=== PATIENT | female | born 1945 | race Caucasian/White ===

== ENCOUNTER 2018-08-31 01:29 | Outpatient (CLI) | payer MEDICARE, OTHER, SELFPAY ==
--- NOTE | 2018-08-31 12:40 | DI.US_ITS ---
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 The velocity measurements obtained are within the normal range. The vertebral arteries show antegrade flow. IMPRESSION: Negative carotid ultrasound. No significant plaque or stenosis.
== END 2018-08-31 01:49 ==
PROVIDERS: PCP Emergency Medicine; Visit Provider Emergency Medicine
DX: R47.1 Dysarthria and anarthria (principal)
CPT/HCPCS: 93880

== ENCOUNTER 2018-08-31 01:41 | Outpatient (CLI) | payer MEDICARE, OTHER, SELFPAY ==
--- NOTE | 2018-08-31 11:24 | DI.MRI_ITS ---
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 No intracranial hemorrhage, mass or infarct is seen. The ventricles are normal in size. The vascular flow voids appear intact. There are a few scattered tiny high signal lesions in the white matter, likely representing small vessel disease. No areas of restricted diffusion are seen. The sinuses, orbits and pithiatry, as well as mastoid air cells, are unremarkable. IMPRESSION: Negative MRI of the brain.
== END 2018-08-31 02:01 ==
PROVIDERS: PCP Emergency Medicine; Visit Provider Emergency Medicine
DX: R47.1 Dysarthria and anarthria (principal)
CPT/HCPCS: 70551; 93880

== ENCOUNTER 2018-09-08 15:34 | Outpatient (CLI) | payer MEDICARE, OTHER, SELFPAY ==
--- NOTE | 2018-09-28 08:46 | ZIOP_ITS ---
ZIO PATCH CARDIAC MONITORING DEVICE DATE OF DICTATION SEPTEMBER 28, 2018 INDICATION Paroxysmal atrial fibrillation. ANALYISIS TIME - 13 Days and 9 hours. FINDINGS Predominant underlying rhythm is sinus rhythm. Average heart rate is 62 beats per minute. 125 episodes of SVT. The longest lasting 15.7 seconds with an average heart rate of 149 beats per minute. Otherwise rare isolated atrial ectopy. No Atrial fibrillation. Rare isolated ventricular ectopy. No nonsustained VT. No significant pauses or eliane arrhythmia. 10 patient triggered events correspond predominantly to sinus rhythm and occasionally to sinus rhythm with atrial ectopy. 6 diary entries with symptoms such as breathing hard corresponding to sinus rhythm, lightheadedness corresponding to sinus rhythm, and fluttering, racing sensation occasionally with some isolated ventricular ectopy. Vaughn Jeffries M.D. KARTHIKEYAN/yulia T - 09/28/2018
== END 2018-09-08 15:54 ==
PROVIDERS: PCP Emergency Medicine; Visit Provider Emergency Medicine
DX: I48.0 Paroxysmal atrial fibrillation (principal); I47.1 Supraventricular tachycardia
CPT/HCPCS: 93225

== ENCOUNTER 2018-09-28 08:26 | Outpatient (CLI) | payer MEDICARE, OTHER, SELFPAY | END 2018-09-28 08:46 | PROVIDERS: PCP Emergency Medicine; Referring Provider Emergency Medicine; Visit Provider Internal Medicine Cardiovascular Disease | DX: I48.0 Paroxysmal atrial fibrillation (principal); I47.1 Supraventricular tachycardia | CPT/HCPCS: 0298T ==

== ENCOUNTER 2018-11-05 00:42 | Outpatient (CLI) | payer MEDICARE, OTHER, SELFPAY ==
--- NOTE | 2018-11-05 09:21 | DI.MAMMO_ITS ---
SYMPTOM/DIAGNOSIS: SCREENING, Z12.31 MAMMOGRAMS: Mammograms were interpreted according to the usual protocol including computer analysis with CAD system, tomosynthesis and C view imaging. The breast tissue is heterogeneously radiodense which lowers the sensitivity of the study. There is no dominant mass. There are no suspicious calcifications and there has been no significant interval change when compared with prior images. SUMMARY: No evidence of malignancy. Category 1. Yearly screening mammography is recommended. Breast density, Category C. SA ASSESSMENT OF FINDINGS: Negative. Category 1. Patient will receive a letter notifying them of these results. Bi-RADS category C. The breasts are heterogeneously dense, which may obscure small masses.
== END 2018-11-05 01:02 ==
PROVIDERS: PCP Emergency Medicine; Visit Provider Obstetrics & Gynecology Gynecology
DX: Z12.31 Encounter for screening mammogram for malignant neoplasm of breast (principal)
CPT/HCPCS: 77063; 77067

== ENCOUNTER 2018-11-05 10:55 | Outpatient (REF) | payer MEDICARE, OTHER, SELFPAY ==
--- NOTE | 2018-11-05 10:00 | PAPFT_PTH ---
PATIENT: Lucero Aguilar LOC: SPENSER U#:[id number] AGE/SX: 73/F ROOM: RE11/05/[address]: Tomeka Fierro : 1945 BED: DIS: 11/05/2018 SPEC #: [id number] RECD: 11/05/18 12:45 STATUS: AYAANJackeline REAyo #: [id number] HAKEEM: 11/05/18 10:[address]: Tomeka Fierro [facility] Cytology RECD BY: Lakshmi Klein ENTERED: 11/05/18 12:46 SP TYPE: PAPFT OTHR DR: Indio Odonnell, Tissues: 1 - CX/ENDOCX FOR PAP SMEARS Procedures: PAP THIN PREP/UVM Screening HPV DNA PROBE Comments: [id number]
== END 2018-11-05 11:15 ==
LOC: LBN 10:55
PROVIDERS: PCP Emergency Medicine; Visit Provider Obstetrics & Gynecology Gynecology
DX: Z12.4 Encounter for screening for malignant neoplasm of cervix (principal); Z11.51 Encounter for screening for human papillomavirus (HPV)
CPT/HCPCS: 88142; 87624

== ENCOUNTER 2020-02-01 00:29 | Outpatient (CLI) | payer MEDICARE, OTHER, SELFPAY ==
--- NOTE | 2020-02-01 12:00 | DI.MAMMO_ITS ---
EXAM: MAMMO SCREENING CLINICAL HISTORY: screening, Z12.39 TECHNIQUE: Mammograms were interpreted according to the usual protocol including computer analysis w [employer] CAD system, tomosynthesis and C-view imaging. COMPARISON: 2010 through 2018 FINDINGS: The breasts are composed of heterogeneously dense fibroglandular densities, Breast Density category C . No suspicious masses or suspicious microcalcifications are seen. No skin thickening or abnormal axillary lymph nodes are seen. There has been no significant change from prior exams. IMPRESSION: BI-RADS Category 1: Negative mammogram. Yearly screening mammography is recommended. Breast density category C, heterogeneously dense tissue which decreases the sensitivity of the mammog francesca. The mammogram demonstrates the patient's breast tissue is dense. Dense breast tissue is very common a nd is not abnormal but dense breast tissue can make it harder to find cancer on a mammogram. Also, de nse breast tissue may increase breast cancer risk. This information about the result of the mammogram report was provided to the patient to raise their awareness. Use this report when you speak with the patient about their risks for breast cancer, which includes their family history. At that time, you may recommend additional screening tests (Ultrasound or MRI) as they might be useful based on their r isk. A negative radiographic report should not delay biopsy if a dominant or clinically suspicious mass is present. Up to ten percent of cancers are not identified on mammography. A negative report may reinforce clinical impression. Adenosis and dense breasts may obscure an underlying neoplasm. False positive reports average 6 to 10%.
== END 2020-02-01 00:49 ==
PROVIDERS: PCP Emergency Medicine; Visit Provider Obstetrics & Gynecology Gynecology
DX: Z12.31 Encounter for screening mammogram for malignant neoplasm of breast (principal)
CPT/HCPCS: 77063; 77067

== ENCOUNTER 2021-01-24 18:40 | Outpatient (REF) | payer MEDICARE, OTHER, SELFPAY ==
[2021-01-24 18:43] LABS: Calculated LDL 110 mg/dL (<100); Cholesterol 206 mg/dL (<200); HDL Cholesterol 67 mg/dL (40-60); Triglyceride 147 mg/dL (<150)
== END 2021-01-24 18:41 | disposition home or self-care (01) ==
LOC: LBN 18:40
PROVIDERS: PCP Emergency Medicine; Visit Provider Emergency Medicine
DX: E78.5 Hyperlipidemia, unspecified (principal)
CPT/HCPCS: 80061

== ENCOUNTER 2021-02-05 01:55 | Outpatient (CLI) | payer MEDICARE, OTHER, SELFPAY ==
--- NOTE | 2021-02-05 07:15 | DI.MAMMO_ITS ---
Exam(s) MAMMO SCREENING EXAM: MAMMO SCREENING CLINICAL HISTORY: screening,z12.39. TECHNIQUE: Bilateral full field digital CC and MLO mammographic images were obtained with 3D tomosyn thesis and utilizing computer aided detection (CAD). COMPARISON: Prior mammograms dating back to 2011, the most recent being January 2020. FINDINGS: There has been no significant change in the appearance and distribution of the fibroglandular tissue is again noted to be dense, this decreasing the sensitivity of the mammogram for finding in underlyin g lesions. There are no new obvious spiculated masses nor malignant appearing microcalcification groups. There is no significant architectural distortion nor skin thickening-retraction. IMPRESSION: Dense bilateral fibroglandular tissue. No obvious radiographic evidence of malignancy nor significan t change compared to prior studies listed above. BI-RADS Category 2 - Benign Findings Breast Density - Category C - Heterogeneously dense Breast density Category C or D implies that the patient has dense breast tissue. Dense breast tissue can make it harder to find cancer on a mammogram. Dense breast tissue is also associated with an incr eased risk of breast cancer. This information about the result of the mammogram report was provided to the patient to raise their awareness. Use this report when you speak with the patient about their risks for breast cancer, which includes their family history. At that time, you may recommend additional screening tests (Ultrasoun d or MRI) as these tests may add significant information. A negative radiographic report should not delay biopsy if a dominant or clinically suspicious mass is present. Up to ten percent of cancers are not identified on mammography. A negative report may reinforce clinical impression. Adenosis and dense breasts may obscure an underlying neoplasm. False positive reports average 6 to 10%. Patient will receive a letter notifying them of these results.
== END 2021-02-05 02:15 ==
PROVIDERS: PCP Emergency Medicine; Visit Provider Nurse Practitioner Family
DX: Z12.31 Encounter for screening mammogram for malignant neoplasm of breast (principal)
CPT/HCPCS: 77063; 77067

== ENCOUNTER 2021-07-24 13:58 | Outpatient (RCR) | payer MEDICARE, OTHER, SELFPAY ==
--- NOTE | 2021-07-24 14:30 | HOLTER_ITS ---
APPROVED REPORT Conclusion This is a 48-hour Holter monitor ordered for indication of palpitations. The patient was in normal sinus rhythm for the majority of the recording with an average heart rate o f 64 bpm. There were 23 brief episodes of supraventricular tachycardia the longest lasting 7 beats. There were rare PACs. There were no episodes of ventricular tachycardia and rare PVCs. There were no episodes of atrial fibrillation, no pauses greater than 3 seconds and no evidence of hi gh degree heart block. There were 2 patient triggered events associated with irregular pulse x20 seconds. Both of these w ere associated with sinus rhythm and sinus tachycardia.
== END 2021-08-17 23:59 | disposition home or self-care (01) ==
LOC: RT 13:58
PROVIDERS: PCP Emergency Medicine; Visit Provider Emergency Medicine
DX: R00.2 Palpitations (principal); I47.1 Supraventricular tachycardia
CPT/HCPCS: 93227; 93225; 93226

== ENCOUNTER 2021-07-24 13:59 | Outpatient (CLI) | payer MEDICARE, OTHER, SELFPAY ==
[2021-07-24 16:12] LABS: TSH 2.28 uIU/mL (0.36-3.74); Vitamin B12 990 pg/mL (193-986)
[2021-07-26 17:36] LABS: Methylmalonic Acid 0.15 nmol/mL (<=0.40)
== END 2021-07-24 14:00 | disposition home or self-care (01) ==
LOC: LBO 07-25 14:03
PROVIDERS: PCP Emergency Medicine; Visit Provider Emergency Medicine
DX: G62.9 Polyneuropathy, unspecified (principal); E03.9 Hypothyroidism, unspecified
CPT/HCPCS: 36415; 80186; 82607; 84443; 93225

== ENCOUNTER → 2022-03-13 01:51 | Outpatient (CLI) | payer MEDICARE, OTHER, SELFPAY ==
--- NOTE | 2022-03-13 12:38 | DI.MAMMO_ITS ---
Exam(s) MAMMO SCREENING EXAM: MAMMO SCREENING CLINICAL HISTORY: screening, Z12.39 TECHNIQUE: Bilateral full field digital CC and MLO mammographic images were obtained with 3D tomosyn thesis and utilizing computer aided detection (CAD). COMPARISON: Available for comparison. FINDINGS: Masses/Architectural Distortion: None seen. Microcalcifications: No suspicious pleomorphic-type are seen. Skin Thickening/Nipple Retraction: None. IMPRESSION: 1. No significant interval change with no specific features of malignancy noted. 2. Unless there is more urgent need, screening mammography is recommended, as per [employer] guidelines. BI-RADS Category 1 - Negative Breast Density - Category C - Heterogeneously dense Breast density category C or D implies that the patient has dense breast tissue. Dense breast tissue is very common and is not abnormal but dense breast tissue can make it harder to find cancer on a ma mmogram. Also, dense breast tissue may increase their breast cancer risk. This information about the result of the mammogram report was provided to the patient to raise their awareness. Use this report when you speak with the patient about their risks for breast cancer, which includes their family hist ory. At that time, you may recommend for more screening tests (Ultrasound or MRI) as they might be us eful based on their risk. A negative radiographic report should not delay biopsy if a dominant or clinically suspicious mass is present. Up to ten percent of cancers are not identified on mammography. A negative report may reinforce clinical impression. Adenosis and dense breasts may obscure an underlying neoplasm. False positive reports average 6 to 10%. Patient will receive a letter notifying them of these results.
== END ==
PROVIDERS: PCP Family Medicine; Visit Provider Obstetrics & Gynecology Gynecology
DX: Z12.31 Encounter for screening mammogram for malignant neoplasm of breast (principal)
CPT/HCPCS: 77063; 77067

== ENCOUNTER → 2022-03-28 00:47 | Outpatient (CLI) | payer MEDICARE, OTHER, SELFPAY ==
--- NOTE | 2022-03-28 09:15 | DI.DEXA_ITS ---
Exam(s) XR DEXA BONE DENSITY W/WO ESCOBAR EXAM: XR DEXA BONE DENSITY W/WO ESCOBAR CLINICAL HISTORY: osteoporosis,M81.0 TECHNIQUE: Routine DEXA evaluation of the lumbar spine, hip, or forearm. COMPARISON: No exams were available for comparison FINDINGS: Performed on a Hologic unit. Lateral image: No compression fracture evident. Lumbar Spine total T-score: -0.4 Hip total T-score:-0.7. Independent reading at the level of the femoral neck yields at T-score of -1.4. Forearm total T-score: -0.8 IMPRESSION: Bone mineral density measures in the osteopenia range. Fracture risk is moderate. Note: Any spine fracture indicates 5x risk for subsequent spine fracture and 2x risk for subsequent h ip fracture. World Health Organization criteria for BMD interpretation classify patients: Normal...... T- Score at or above -1.0 Osteopenic... T- Score between -1.0 and -2.5 Osteoporosis... T-Score at or below -2.5
== END ==
PROVIDERS: PCP Family Medicine; Visit Provider Family Medicine
DX: M85.89 Other specified disorders of bone density and structure, multiple sites (principal); Z13.820 Encounter for screening for osteoporosis
CPT/HCPCS: 77080

== ENCOUNTER 2023-03-21 13:22 | Outpatient (CLI) | payer MEDICARE, OTHER, SELFPAY ==
[2023-03-21 13:46] LABS: Abs Immature Grans 0.06 10^3/uL (0.0-0.06); Absolute Basophil Count 0.04 10^3/uL (0.0-0.2); Absolute Eosinophil Count 0.17 10^3/uL (0.0-0.7); Absolute Lymphocyte Count 1.57 10^3/uL (1.2-3.4); Absolute Monocyte Count 0.76 10^3/uL (0.1-0.8); Absolute Neutrophil Count 6.28 10^3/uL (1.2-6.7); Basophils % 0.5; Eosinophils % 1.9; HCT 37.1 % (36.0-46.0); HGB 12.1 g/dL (11.2-15.7); Immature Grans % 0.7; Lymphocytes % 17.7; MCH 29.6 pg (27.0-33.0); MCHC 32.6 % (32.0-36.0); MCV 91 fL (80-95); MPV 8.4 fL (8.0-11.0); Monocytes % 8.6; Neutrophils % 70.6; Platelet Count 242 10^3/uL (130-400); RBC 4.09 10^6/uL (3.93-5.22); RDW 12.7 % (11.7-14.6); RDW-SD 42.2 fL; WBC 8.88 10^3/uL (4.4-10.8)
[2023-03-21 13:49] LABS: ESR 48 mm/hr (0-30)
[2023-03-21 14:19] LABS: ALT 47 U/L (14-59); AST 25 U/L (15-37); Albumin 3.3 g/dL (3.4-5.0); Alkaline Phosphatase 167 U/L (46-116); Anion Gap 6.7 mmol/L (3-11); BUN 13 mg/dL (7-18); Bilirubin, Total 0.3 mg/dL (0.2-1.0); C-Reactive Protein 16.98 mg/dL (0.0-0.3); CO2 30.3 mmol/L (21.0-32.0); Calcium 9.6 mg/dL (8.5-10.1); Chloride 100 mmol/L (98-107); Estimated GFR 58.02 (mL/min/1.73m2); Glucose 115 mg/dL (74-106); Potassium 3.8 mmol/L (3.5-5.1); Sodium 137 mmol/L (136-145); TSH (W/Ref FT4) 1.74 uIU/mL (0.36-3.74); Total Protein 7.9 g/dL (6.4-8.2)
[2023-03-24 10:41] LABS: Lyme Ab w Rflx to Lyme Confirm Negative (Negative)
[2023-03-24 20:55] LABS: Anaplasma phagocytophilum Negative (Negative); B. miyamotoi PCR Negative (Negative); Babesia divergens/MO-1 Negative (Negative); Babesia duncani Negative (Negative); Babesia microti Negative (Negative); Ehrlichia chaffeensis Negative (Negative); Ehrlichia ewingii/canis Negative (Negative); Ehrlichia muris eauclairensis Negative (Negative)
== END 2023-03-21 13:23 | disposition home or self-care (01) ==
LOC: LBO 13:22
PROVIDERS: PCP Family Medicine; Visit Provider Family Medicine
DX: R50.9 Fever, unspecified (principal); R53.83 Other fatigue; R00.2 Palpitations; R03.0 Elevated blood-pressure reading, without diagnosis of hypertension
CPT/HCPCS: 36415; 80053; 85652; 87798; 84443; 85025; 86140; 86618

== ENCOUNTER → 2023-04-03 09:05 | Outpatient (BNVA) | payer MEDICARE, OTHER, SELFPAY | PROVIDERS: PCP Family Medicine; Referring Provider Family Medicine; Visit Provider Physical Therapy Assistant | DX: Z12.11 Encounter for screening for malignant neoplasm of colon (principal); Z86.010 Personal history of colon polyps; Z80.0 Family history of malignant neoplasm of digestive organs ==

== ENCOUNTER 2023-04-14 06:45 | Day surgery (SDC) | payer MEDICARE, OTHER, SELFPAY ==
--- NOTE | 2023-04-13 09:40 | W.PM.DSUDISC ---
Date of service: 04/14/23 Time of Service: 08:47 Discharge Plan Disposition Patient Disposition: Home Condition: Good Discharge Details Reason For Visit: Screening colonoscopy Attending Provider: Sage Wright Primary Care Provider: Mya Conner Home Meds and New Rx's Prescriptions: Continued Zyrtec 10 mg capsule 10 mg PO DAILY PRN (Reason: allergy symptoms) multivitamin [Daily Multi-Vitamin] 1 EACH tablet 1 ea PO DAILY TUMS 1 tab PO PRN PRN acetaminophen [Tylenol] 325 MG tablet 650 mg PO Q6H PRN naproxen [Naprosyn] 500 MG tablet 500 mg PO PRN metoprolol succinate [Toprol XL] 50 mg tablet extended release 24 hr 50 mg PO HS Discontinued polyethylene glycol 3350 17 gram/dose powder 238 g PO ONCE Qty: 238 0RF Rx Instructions: take per colonoscopy instructions bisacodyl [Dulcolax (bisacodyl)] 5 mg tablet,delayed release (DR/EC) 5 mg PO ONCE Qty: 4 0RF Rx Instructions: take per colonoscopy instructions Discharge Instructions Instructions: Diverticulosis (GEN), Diverticulosis Diet (GEN) Additional Instructions: Lucero, We were able to complete your colonoscopy today without any difficulty. I did not see any signs of tumors or polyps or anything worrisome. You do have a fair amount of sigmoid diverticulosis. But this was seen on your previous colonoscopies as well. I attached some general information here regarding diverticular disease. Like we talked about before the procedure, based on your family history, I would recommend considering another colonoscopy in 5 years. If you have any questions in the meantime, please do not hesitate to call. 1. If tolerated, consume a soft, low fiber diet for 1-2 days. 2[address] Do not drive, drink alcohol, operate machinery, make critical decisions, or do activities that require coordination or balance for 24 hours. 3. Because air was put into your colon during the procedure, expelling air from your rectum (passing gas or farting) is normal. 4. You may not have a bowel movement for 1-3 days because of the colonoscopy prep. This is normal. 5. Go directly to the emergency room if you notice any of the following: Develop chills (warm to touch), or if you have a thermometer and your temperature is above 101 Difficulty breathing or difficultly swallowing Persistent vomiting Severe abdominal pain, other than gas cramps Severe chest pain Black, tarry stools Any bleeding ? exceeding one tablespoon 6. Call your physician if the site where your intravenous was started becomes red, swollen, painful, and warm to touch. 7. Your physician has reviewed your pre-procedure medications. Please continue to take those medications as previously ordered. You will be given specific information/education regarding any changes to your medications before leaving. Stand Alone Forms: Anesthesia Discharge InstEder Rubi (DSU) Activity:: Activity as Tolerated Diet:: As Tolerated Discharge Orders Discharge Orders: Discharge Order (Routine); Ordered 04/13/23 Ordered By: Sage Wright DS: Diagnosis Discharge Diagnosis (1) Screen for colon cancer: Status: Acute Asessment and Plan: Negative screening colonoscopy. Based on family history, consider another colonoscopy in 5 years
--- NOTE | 2023-04-13 09:41 | COLE_ITS ---
Date of service: 04/14/23 Time of Service: 08:53 Colonoscopy Report Date of procedure: 04/14/23 Pre-op diagnosis general: Screening colonoscopy Post-op diagnosis procedure note: other (Negative screening colonoscopy) Procedure: Colonoscopy Surgeon: Sage Wright Anesthesia Type: General:No Airway Estimated blood loss (mL): 0 Pathology: none sent Complications: None Disposition: same day Indications: Peter is a 77-year-old woman who was undergoing screening colonoscopy Prep: Miralax/Dulcolax Procedure Start Time: 08:19 Procedure End Time: 08:39 Retraction Time: 14 Findings: Extensive [place] sigmoid diverticulosis Procedure Description: After the induction of monitored anesthetic care, and with the patient in left lateral decubitus position, I began by performing an external anorectal exam.? Perineum and skin were normal, as was the anal verge.? There are some external hemorrhoids. None are thrombosed. Next, I performed a digital rectal exam.? I did not appreciate any abnormal findings.? Next, I advanced a colonoscope into the rectal vault.? I performed retroflexion.? There is mild inflammation of an internal hemorrhoid. There is no stigmata of recent bleeding..? Using insufflation, I then advanced the colonoscope beyond the rectal folds and into the sigmoid colon before advancing towards the cecum.? The quality of the prep was outstanding. There was extensive wid[place]outh sigmoid diverticulosis. The tr ue lumen was maintained with care. The scope was noted to be in the cecum by identification of the ileocecal valve and appendiceal orifice.? I then began withdrawing the colonoscope using repeated irrigation as necessary for full evaluation of the colonic mucosa. ?Once the scope was withdrawn to the level of the rectum, great care was taken to examine portions of the rectal folds.? Finally, the scope was withdrawn and the patient was brought to the same-day surgery recovery unit as the anesthetic wore off. ?The findings and instructions were shared with the patient prior to discharge.
[2023-04-14 07:00] VITALS: BP 162/73; PULSE 56; RESP 16; TEMP 36.5; O2SAT 98
[2023-04-14] MEDS: Lactated Ringers 1,000 ML 80 ML IV (07:30)
--- NOTE | 2023-04-14 07:54 | ANES.PREOP_ITS ---
General Info Date of Service Date Performed: 04/14/23 Height: 5 ft 7 in Weight: 61.4 kg Body Mass Index (BMI): 21.2 Surgical Procedure: Operation Date: 04/14/23 08:20 Proposed Procedure Side Surgeon leydi Wright MD Meds Allergies and Home Medications Allergies Allergy/AdvReac Type Severity Reaction Status Date / Time No Known Allergies Allergy Verified 04/14/23 07:08 Home Medication Medication Instructions Recorded Tums 1 tab PO PRN PRN 01/05/13 multivitamin (Daily Multi-Vitamin 1 ea PO DAILY 01/05/13 tablet) acetaminophen 325 mg tablet 650 mg PO Q6H PRN 07/02/16 (Tylenol) naproxen 500 mg tablet (Naprosyn) 500 mg PO PRN 07/02/16 cetirizine 10 mg capsule (Zyrtec) 10 mg PO DAILY PRN allergy symptoms 02/01/20 metoprolol succinate 50 mg 50 mg PO HS 04/11/23 tablet,extended release 24 hr (Toprol XL) Current Visit Medications: Current Medications Generic Name Dose Route Start Last Admin Trade Name Freq PRN Reason Stop Dose Admin Hyoscyamine Sulfate 0.125 mg 04/13/23 09:42 Hyoscyamine 0.125 Mg Sl/Oral/Chew SL 05/13/23 09:41 DIRECTED PRN Ringer's Solution 1,000 mls @ 80 mls/hr 04/14/23 06:00 04/14/23 07:30 IV 05/11/23 23:59 80 mls/hr INFUSION KENYATTA Administration IV Miscellaneous Supplies 1 each 04/14/23 06:00 Iv Access IV 05/11/23 23:59 DIRECTED KENYATTA Ondansetron HCl 4 mg 04/13/23 09:42 Ondansetron 4 Mg/2 Ml Vial IVP 05/13/23 09:41 Q4H PRN PRN Nausea / Vomiting Sodium Chloride 0 ml 04/14/23 06:00 Normal Saline Flush 10 Ml Syr IV 05/11/23 23:59 PRN PRN Sodium Chloride 0 ml 04/14/23 06:00 Normal Saline 10 Ml Vial IJ 05/11/23 23:59 DIRECTED PRN Sterile Water 0 ml 04/14/23 06:00 Water,Injection,Sterile 10 Ml Vial IJ 05/11/23 23:59 DIRECTED PRN PFSH Active Problems Active Problems: Problem Status Onset Code 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 Elevated lipids Peripheral neuropathy Sleep disorder (06/24/17) White coat syndrome with high blood pressure without hypertension Surgical History Surgical History (Updated 04/14/23 @ 07:14 by Azeb Canales RN) History of esophagogastroduodenoscopy (EGD) Hx of colonoscopy with polypectomy had bleeding after procedure. Due 2023. PROCEDURES Removal of lipoma and repair of plantar fasciitis. Tobacco Smoking/Tobacco Use Status: Former Tobacco Use Second hand exposure: No Alcohol Alcohol Intake: never Substance Use Substance use: Never Prental History History 2 Para Hx # Term Pregnancies 2 Multiple births Hx # Pregnancies Ectopic pregnancies AB induced Hx Number of Living Children AB spontaneous Vital Signs and Lab Results Vital Signs Most Recent Vital Signs in EMR: Most Recent Vital Signs Temp Pulse Resp BP Pulse Ox 36.5 C 56 L 16 162/73 H 98 04/14/23 07:00 04/14/23 07:00 04/14/23 07:00 04/14/23 07:00 04/14/23 07:00 Lab Results Blood Type / Crossmatch: No Data to Display Complete Blood Count: White Blood Count 8.88 10^3/uL (4.4-10.8) 03/21/23 13:42 Red Blood Count 4.09 10^6/uL (3.93-5.22) 03/21/23 13:42 Hemoglobin 12.1 g/dL (11.2-15.7) 03/21/23 13:42 Hematocrit 37.1 % (36.0-46.0) 03/21/23 13:42 Platelet Count 242 10^3/uL (130-400) 03/21/23 13:42 Complete Metabolic Panel: Sodium 137 mmol/L (136-145) 03/21/23 13:42 Potassium 3.8 mmol/L (3.5-5.1) 03/21/23 13:42 Chloride 100 mmol/L (98-107) 03/21/23 13:42 Carbon Dioxide 30.3 mmol/L (21.0-32.0) 03/21/23 13:42 BUN 13 mg/dL (7-18) 03/21/23 13:42 Creatinine 1.0 mg/dL (0.55-1.02) 03/21/23 13:42 Est GFR (CKD-EPI 2020) 58.02 (mL/min/1.73m2) 03/21/23 13:42 Calcium 9.6 mg/dL (8.5-10.1) 03/21/23 13:42 Albumin 3.3 g/dL (3.4-5.0) L 03/21/23 13:42 Glucose 115 mg/dL (74-106) H 03/21/23 13:42 C-Reactive Protein 16.98 mg/dL (0.0-0.3) H 03/21/23 13:42 Liver Function Panel: Alanine Aminotransferase (ALT/SGPT) 47 U/L (14-59) 03/21/23 13: 42 Aspartate Amino Transf (AST/SGOT) 25 U/L (15-37) 03/21/23 13:42 Coagulation Panel: No Data to Display Cardiac Panel: No Data to Display Arterial Blood Gas: No Data to Display Venous Blood Gas: No Data to Display Pancreas Panel: No Data to Display Thyroid Panel: Thyroid Stimulating Hormone (TSH) 1.74 uIU/mL (0.36-3.74) 03/21 13:42 Infectious Disease: No Data to Display Blood Cultures: No Data to Display Toxicology Panel: No Data to Display Imaging and Studies Imaging and Studies Study information below may be from another EMR and interpreted by another provider. Please see original notes in EMR for more complete details. Carotid Artery Summary:: Date of Exam: 08/31/18Sex: F Admission Date: 08/31/18 : 1945 Age: 73 Exam(s) a US:US carotid SYMPTOMS/DIAGNOSIS: DYSARTHRIA, ANARTHRIA, R47.1 CAROTID ULTRASOUND: No significant plaque is visible in either common or internal or external blevins tid artery. The velocity measurements obtained are within the normal range. The vertebral arteries show antegrade flow. IMPRESSION: Negative carotid ultrasound. No significant plaque or stenosis. Anesthesia Assessment and Plan Anesthesia History Personal History: No History of Anesthesia Complications Family History: No Family History of Anesthesia Complications Exercise Tolerance Exercise Tolerance: Metabolic Equivalents>4 Pertinent Negatives Pertinent Negatives: No Symptoms of GERD and No Major Pulmonary Symptoms or Complaints Cardiac & Pulmonary Exam Cardiac Exam: Normal S1/S2 Heart Sounds Pulmonary Exam: Clear Bilateral Breath Sounds and Rales Present Implantable Cardiac Device Does patient have a Pacemaker or an ICD?: No Airway Exam Known Difficult Airway: No Mallampati Class: 2 Mouth Opening: Normal (> 3cm) Thyromental Distance: Greater than 3 cm Neck Range of Motion: Full ROM Neck Circumference: Normal Teeth Condition: Normal Dentition ASA Classification ASA Score: ASA 2 Emergency Case?: No NPO Status NPO Status: NPO Clears >2 hours, Solids >8 hours Anesthesia Plan Resuscitation Status: Full Code Anesthesia Technique: General Anesthesia Airway Planned: Natural Airway Monitors Used: Standard Monitors
[2023-04-14 07:57] VITALS: BMI 21.2
[2023-04-14 08:45] VITALS: BP 103/64; PULSE 55; RESP 20; TEMP 36.4; O2SAT 96
[2023-04-14 09:18] VITALS: BP 138/74; PULSE 57; RESP 16; TEMP 36.1; O2SAT 100
--- NOTE | 2023-04-14 10:13 | W.ANESPOSTOP ---
Postoperative Evaluation Date, Time and Location Date Performed: 04/14/23 Time Performed: 09:30 Patient Location: Day Surgery Unit Vital Signs Most Recent Imported Vital Signs: Most Recent Vital Signs Temp Pulse Resp BP Pulse Ox 36.1 C L 57 L 16 138/74 100 04/14/23 09:18 04/14/23 09:18 04/14/23 09:18 04/14/23 09:18 04/14/23 09:18 Pain Score Most Recent Pain Score: Most Recent Pain Score Pain Level 0 04/14/23 09:18 Assessment Mental Status: Awake (Alert & Oriented to Patient Baseline) Airway and Respiratory Function: Patent airway with normal (patient baseline) respiratory exam Cardiovascular Function: Hemodynamically Stable Hydration Status: Adequately Hydrated Nausea & Vomiting: No Nausea or Vomiting Pain: Pt. Denies Any Pain Peripheral Nerve Block: Patient did not receive a nerve block
== END 2023-04-14 09:31 | disposition home or self-care (01) ==
PROVIDERS: PCP Family Medicine; Visit Provider Surgery
PROC: 0DJD8ZZ Inspection of Lower Intestinal Tract, Via Natural or Artificial Opening Endoscopic (ICD-10-PCS; CPT 45378; principal; 2023-04-14 08:15)
DX: Z12.11 Encounter for screening for malignant neoplasm of colon (principal); K57.30 Diverticulosis of large intestine without perforation or abscess without bleeding; Z80.0 Family history of malignant neoplasm of digestive organs
CPT/HCPCS: G0105

== ENCOUNTER → 2023-04-30 01:17 | Outpatient (CLI) | payer MEDICARE, OTHER, SELFPAY ==
--- NOTE | 2023-04-30 07:30 | DI.MAMMO_ITS ---
Exam(s) MAMMO SCREENING EXAM: MAMMO SCREENING CLINICAL HISTORY: screening,z12.39. TECHNIQUE: Bilateral full field digital CC and MLO mammographic images were obtained with 3D tomosyn thesis and utilizing computer aided detection (CAD). COMPARISON: Prior mammograms were reviewed. FINDINGS: Fibroglandular tissue is again noted be dense, this somewhat decreasing the sensitivity of the mammog francesca for finding hidden underlying lesions. There are no new spiculated masses nor malignant appearing microcalcification groups. There is no significant architectural distortion nor skin thickening-retraction. IMPRESSION: No radiographic evidence of malignancy. BI-RADS Category 1 - Negative Breast Density - Category C - Heterogeneously dense Breast density Category C or D implies that the patient has dense breast tissue. Dense breast tissue can make it harder to find cancer on a mammogram. Dense breast tissue is also associated with an incr eased risk of breast cancer. This information about the result of the mammogram report was provided to the patient to raise their awareness. Use this report when you speak with the patient about their risks for breast cancer, which includes their family history. At that time, you may recommend additional screening tests (Ultrasoun d or MRI) as these tests may add significant information. A negative radiographic report should not delay biopsy if a dominant or clinically suspicious mass is present. Up to ten percent of cancers are not identified on mammography. A negative report may reinforce clinical impression. Adenosis and dense breasts may obscure an underlying neoplasm. False positive reports average 6 to 10%. Patient will receive a letter notifying them of these results.
== END ==
PROVIDERS: PCP Family Medicine; Visit Provider Obstetrics & Gynecology Gynecology
DX: Z12.31 Encounter for screening mammogram for malignant neoplasm of breast (principal)
CPT/HCPCS: 77063; 77067

== ENCOUNTER 2024-05-03 03:28 | Outpatient (CLI) | payer MEDICARE, OTHER, SELFPAY ==
--- NOTE | 2024-05-03 08:30 | DI.MAMMO_ITS ---
Exam(s) MAMMO SCREENING EXAM: MAMMO SCREENING CLINICAL HISTORY: screening. TECHNIQUE: Bilateral full field digital CC and MLO mammographic images were obtained with 3D tomosyn thesis and utilizing computer aided detection (CAD). COMPARISON: Prior mammograms were reviewed. FINDINGS: There has been no significant change in the appearance and distribution of the fibroglandular tissue which is again noted be moderately dense.. There are no new obvious spiculated masses nor malignant appearing microcalcification groups. There is no significant architectural distortion nor skin thickening-retraction. IMPRESSION: No radiographic evidence of malignancy. Dense fibroglandular tissue BI-RADS Category 1 - Negative Breast Density - Category C - Heterogeneously dense Breast density Category C or D implies that the patient has dense breast tissue. Dense breast tissue can make it harder to find cancer on a mammogram. Dense breast tissue is also associated with an incr eased risk of breast cancer. This information about the result of the mammogram report was provided to the patient to raise their awareness. Use this report when you speak with the patient about their risks for breast cancer, which includes their family history. At that time, you may recommend additional screening tests (Ultrasoun d or MRI) as these tests may add significant information. A negative radiographic report should not delay biopsy if a dominant or clinically suspicious mass is present. Up to ten percent of cancers are not identified on mammography. A negative report may reinforce clinical impression. Adenosis and dense breasts may obscure an underlying neoplasm. False positive reports average 6 to 10%. Patient will receive a letter notifying them of these results.
== END 2024-05-03 03:48 ==
LOC: DI 03:28
PROVIDERS: PCP Family Medicine; Visit Provider Obstetrics & Gynecology Gynecology
DX: Z12.31 Encounter for screening mammogram for malignant neoplasm of breast (principal)
CPT/HCPCS: 77063; 77067

== ENCOUNTER 2024-05-03 04:43 | Outpatient (CLI) | payer MEDICARE, OTHER, SELFPAY ==
[2024-05-03 09:43] LABS: ALT 22 U/L (14-59); AST 19 U/L (15-37); Albumin 3.8 g/dL (3.4-5.0); Alkaline Phosphatase 77 U/L (46-116); Anion Gap 3.4 mmol/L (3-11); BUN 14 mg/dL (7-18); Bilirubin, Total 0.44 mg/dL (0.2-1.0); CO2 30.6 mmol/L (21.0-32.0); CREATININE 0.8 mg/dL (0.55-1.02); Calcium 9.4 mg/dL (8.5-10.1); Chloride 103 mmol/L (98-107); Estimated GFR 75.37 (mL/min/1.73m2); Glucose 90 mg/dL (74-106); Sodium 137 mmol/L (136-145); Total Protein 7.1 g/dL (6.4-8.2)
== END 2024-05-03 04:44 | disposition home or self-care (01) ==
LOC: LBO 04:43
PROVIDERS: PCP Family Medicine; Visit Provider Family Medicine
DX: I10 Essential (primary) hypertension (principal)
CPT/HCPCS: 36415; 80053

== ENCOUNTER 2025-06-06 02:25 | Outpatient (CLI) | payer MEDICARE, OTHER, SELFPAY ==
--- NOTE | 2025-06-06 12:07 | DI.MAMMO_ITS ---
Exam(s) MAMMO SCREENING EXAM: MAMMO SCREENING CLINICAL HISTORY: screening,z12.39 TECHNIQUE: Bilateral full field digital CC and MLO mammographic images were obtained with 3D tomosynthesis and utilizing computer aided detection (CAD). COMPARISON: Comparison is made with prior examinations. FINDINGS: Masses/Architectural Distortion: No suspicious masses or areas of architectural distortion are present. Microcalcifications: No suspicious pleomorphic-type are seen. Skin Thickening/Nipple Retraction: None. IMPRESSION: 1. No significant interval change with no specific features of malignancy noted. 2. Unless there is more urgent need, screening mammography is recommended, as per [place] [employer] guidelines. BI-RADS Category 1 - Negative Breast Density - Category C - The breast are heterogeneously dense, which may obscure small masses. Breast density Category C or D implies that the patient has dense breast tissue. Dense breast tissue can make it harder to find cancer on a mammogram. Dense breast tissue is also associated with an increased risk of breast cancer. This information about the result of the mammogram report was provided to the patient to raise their awareness. Use this report when you speak with the patient about their risks for breast cancer, which includes their family history. At that time, you may recommend additional screening tests (Ultrasound or MRI) as these tests may add significant information. A negative radiographic report should not delay biopsy if a dominant or clinically suspicious mass is present. Up to ten percent of cancers are not identified on mammography. A negative report may reinforce clinical impression. Adenosis and dense breasts may obscure an underlying neoplasm. False positive reports average 6 to 10%. Patient will receive a letter notifying them of these results.
== END 2025-06-06 02:45 ==
LOC: DI 02:25
PROVIDERS: PCP Family Medicine; Visit Provider Family Medicine
DX: Z12.31 Encounter for screening mammogram for malignant neoplasm of breast (principal)
CPT/HCPCS: 77063; 77067